=== PATIENT | female | born 1990 | race African-American/Black ===

== ENCOUNTER 2019-04-16 22:30 | Emergency (ER) | payer OTHER ==
[~2019-04-16] VITALS: Ht 152.4 cm; Wt 88.2 kg
[2019-04-16 22:56] VITALS: TEMP 98.7
[2019-04-17 02:31] LABS: BASO % 0.2 % (0.0-2.0); EOS # 0.1 (0.0-0.7); EOS % 2.5 % (0-4.0); GRAN # 2.6 (1.4-6.5); GRAN % 47.6 % (42.2-75.2); HEMOGLOBIN 10.2 g/dl (12.5-16.0); LYMPH # 2.2 (1.2-3.4); LYMPH % 38.8 % (20.0-51.0); MEAN CELL VOLUME 85 fl (80.0-100.0); MEAN CORPUSCULAR HEMOGLOBIN 27 pg (27.0-31.0); MEAN CORPUSCULAR HGB CONC 32 g/dl (33.0-37.0); MEAN PLATELET VOLUME 10.4 fl (7.4-10.4); MONO # 0.6 (0.1-0.6); MONO % 10.5 % (1.7-9.3); PLATELET COUNT 215 K/mm3 (130-400); RED BLOOD COUNT 3.78 M/mm3 (4.10-5.30); REDCELL DISTRIBUTION WIDTH-CV 13.3 % (11.5-14.5)
[2019-04-17 02:32] LABS: HEMATOCRIT 32.2 % (37.0-47.0)
[2019-04-17 02:42] LABS: CALCIUM 8.7 mg/dL (8.4-10.2); CREATININE, serum 0.66 (0.52-1.25); POTASSIUM 3.6 mmol/L (3.4-5.0)
[2019-04-17] MEDS ORDERED: FLEXERIL 1010 MG/TAB PO (02:46)
[2019-04-17 05:56] LABS: COLLECTION METHOD CLEAN CATCH
[2019-04-17 06:02] LABS: PH 6 (5-8); SQUAMOUS EPITHELIAL 0-2 /hpf; URINE APPEARANCE Clear; URINE BACTERIA None Seen /hpf; URINE BILIRUBIN Negative (NEGATIVE); URINE BLOOD Negative (NEGATIVE); URINE COLOR Yellow; URINE GLUCOSE Negative (NEGATIVE); URINE KETONE Negative (NEGATIVE); URINE LEUKOCYTE ESTERASE Negative (NEGATIVE); URINE NITRATE Negative (NEGATIVE); URINE PROTEIN(semi-quant) Negative (NEGATIVE); URINE RBC 0-2 /hpf; URINE UROBILINOGEN Negative (NEGATIVE)
[2019-04-17 06:21] VITALS: BP 119/78; PULSE 78
== END 2019-04-17 06:21 | disposition home or self-care (01) ==
LOC: COL.ER 22:30
PROVIDERS: Emergency Medicine; Physician Assistant
DX: R07.89 Other chest pain (principal)
CPT/HCPCS: J1200; J2930; J7030; Q9967